=== PATIENT | female | born 1995 | race Caucasian/White ===

== ENCOUNTER 2023-01-13 12:29 | Emergency (ER) | payer OTHER ==
[2023-01-13 13:00] VITALS: RESP 18
[2023-01-13] MEDS ORDERED: HYDROcodone/APAP 5-325MG 1 EACH TAB PO STA (13:16)
[2023-01-13] MEDS ORDERED: IBUPROFEN 600 MG TAB PO STA (13:16)
--- NOTE | 2023-01-13 13:34 | ED ---
Extremity Problem HPI - General Chief complaint: Extremity Injury, Lower Stated complaint: pain in left leg Time Seen by Provider: 01/13/23 12:40 Source: patient, RN notes reviewed Mode of arrival: ambulatory Limitations: no limitations - History of Present Illness Initial comments: This is a 27-year-old female who presents to the emergency department for left leg pain. Patient reports 3 days of pain starting the left foot and starting to travel up into the leg. This does not go up much farther than the distal most aspect of the tib-fib. However, she does still occasionally get spurts of pain up into the higher area of the calf and behind the knee. Denies any injuries. However, states that she was on a long car ride recently. Denies any chest pain or shortness of breath. She's not had any swelling to this area. Denies any history of similar symptoms in the past. She is able to ambulate but states that it becomes very difficult after more than a few minutes. She has not tried taking anything for her pain. She originally went to urgent care, who advised she come to the emergency department to rule out a blood clot. MD Complaint: extremity pain Onset/Timin -: days(s) Location: left, lower extremity - Related Data Previous Rx's Medication Instructions Recorded Ibuprofen [Motrin] 800 mg PO Q8H PRN #30 tab 01/13/23 Allergies Allergy/AdvReac Type Severity Reaction Status Date / Time No Known Allergies Allergy Verified 01/13/23 12:50 Review of Systems ROS Statement: Those systems with pertinent positive or pertinent negative responses have been documented in the HPI. ROS Other: All systems not noted in ROS Statement are negative. Past Medical History Past Medical History: No Reported History History of Any Multi-Drug Resistant Organisms: None Reported Past Surgical History: No Surgical Hx Reported Past Psychological History: Anxiety, Depression Smoking Status: Never smoker Past Alcohol Use History: Rare Past Drug Use History: Marijuana General Exam Limitations: no limitations General appearance: alert, in no apparent distress Head exam: Present: atraumatic, normocephalic, normal inspection Respiratory exam: Present: normal lung sounds bilaterally. Absent: respiratory distress, wheezes, rales, rhonchi, stridor Cardiovascular Exam: Present: regular rate, normal rhythm, normal heart sounds. Absent: systolic murmur, diastolic murmur, rubs, gallop, clicks Extremities exam: Present: other (Tenderness to palpation over the dorsal aspect of the left foot and bottom half of the left tib-fib. Range of motion is somewhat limited by pain. No obvious deformities, swelling, ecchymosis, or erythema. 2+ DP and PT pulses. Capillary refill less than 1 second.) Neurological exam: Present: alert, oriented X3, CN II-XII intact Psychiatric exam: Present: normal affect, normal mood Skin exam: Present: warm, dry, intact, normal color. Absent: rash Course Vital Signs 01/13/23 01/13/23 12:44 14:31 Temperature 98.6 F 98.4 F Pulse Rate 92 87 Respiratory 18 18 Rate Blood Pressure 135/88 129/76 O2 Sat by Pulse 97 98 Oximetry Medical Decision Making - Medical Decision Making This is a 27-year-old female who presents to the emergency department for left leg pain. Was pt. sent in by a medical professional or institution? @ -Urgent Care Did you speak to anyone other than the patient for history? @ -No Did you review nursing and triage notes? @ -Yes, and I agree, it is accurate with regards to the patient's symptoms. Were old charts reviewed? @ -No Differential Diagnosis? @ -Differential Leg Pain: Leg fracture, leg sprain, DVT, PVD, arterial insufficiency, iliac artery aneurysm, cellulitis, compartment syndrome, tendinopathy, nerve entrapment, piriformis syndrome, osteoarthritis, rhabdomyolysis, myositis, cramping from an electrolyte imbalance, this is not meant to be an all inclusive list. EKG interpreted by me (3pts min.)? @ -Not obtained X-rays interpreted by me (1pt min.)? @ -Not obtained CT interpreted by me (1pt min.)? @ -Not obtained U/S interpreted by me (1pt. min.)? @ -Duplex ultrasound of the left lower extremity obtained. My interpretation identifies no evidence of a DVT. What testing was considered but not performed? (CT, X-rays, U/S, labs)? Why? @ -None What meds were considered but not given? Why? @ -None Did you discuss the management of the patient with other professionals? @ -No Did you reconcile home meds? @ -No Was smoking cessation discussed for >3mins.? @ -No Was critical care preformed (if so, how long)? @ -No Were there social determinants of health that impacted care today? How? (Homelessness, low income, unemployed, alcoholism, drug addiction, transportation, low edu. Level, literacy, decrease access to med. care, senior care, rehab)? @ -No Was there de-escalation of care discussed even if they declined? (Discuss DNR or withdrawal of care, Hospice)? @ -No What co-morbidities impacted this encounter? (DM, HTN, Smoking, COPD, CAD, Cancer, CVA, Hep., AIDS, mental health diagnosis, sleep apnea, morbid obesity)? @ -None Was patient admitted / discharged? @ -Discharged. Physical examination of the left lower extremity revealed no external findings aside from the tenderness. Duplex ultrasound obtained revealing no acute process. I did offer x-rays, however given that there were no injuries, it is unlikely that this would demonstrate anything. Patient declines x-rays at this time. Her pain was controlled in the emergency depart ment. Prescription for ibuprofen provided with dosing instructions reviewed. Advised alternating this with Tylenol for additional relief. Information for local primary care providers was provided. Advised she contact them to become established for ongoing medical care. Undiagnosed new problem with uncertain prognosis? @ -None Drug Therapy requiring intensive monitoring for toxicity (Heparin, Nitro, Insulin, Cardizem)? @ -None Were any procedures done? @ -None Diagnosis/symptom? @ -Left leg pain Acute, or Chronic, or Acute on Chronic? @ -Acute Uncomplicated (without systemic symptoms) or Complicated (systemic symptoms)? @ -Uncomplicated Side effects of treatment? @ -None Exacerbation, Progression, or Severe Exacerbation] @ -Not applicable Poses a threat to life or bodily function? @ -No Return precautions reviewed in depth, the patient is instructed to return to the emergency department with any new, worsening, or concerning symptoms. Patient verbalized understanding. This case was discussed in detail with the attending ED physician, Dr. Bernabe. Presentation, findings, and treatment plan discussed in detail as well. - Radiology Data Radiology results: report reviewed, image reviewed Disposition Clinical Impression: Left leg pain Disposition: HOME SELF-CARE Instructions (If sedation given, give patient instructions): Leg Pain (ED) Additional Instructions: Return to the emergency department with any new, worsening, or concerning sym ptoms. Alternate with ibuprofen and Tylenol as needed for pain relief. Contact the list of local primary care providers listed below to become established for ongoing care. You can also try contacting the orthopedic office as listed below to see if they will see you for a follow-up appointment from the emergency department. Prescriptions: Ibuprofen [Motrin] 800 mg PO Q8H PRN #30 tab PRN Reason: Pain Is patient prescribed a controlled substance at d/c from ED?: No Referrals: None,Stated [Primary Care Provider] - 1-2 days Yariel Monson MD [STAFF PHYSICIAN] - 1-2 days Forms: Area PCPs
--- NOTE | 2023-01-13 13:57 | US ---
EXAMINATION TYPE: US venous doppler duplex LE LT DATE OF EXAM: 01/13/2023 1:47 PM COMPARISON: NONE CLINICAL INDICATION: Female, 27 years old with history of Left leg pain; Left calf pain SIDE PERFORMED: Left TECHNIQUE: The lower extremity deep venous system is examined utilizing real time linear array sonog sudhir with graded compression, doppler sonography and color-flow sonography. VESSELS IMAGED: Common Femoral Vein Deep Femoral Vein Greater Saphenous Vein * Femoral Vein Popliteal Vein Small Saphenous Vein * Proximal Calf Veins (* superficial vessels) Left Leg: Appears negative for DVT IMPRESSION: Grayscale, color doppler, spectral doppler imaging performed of the deep veins of the lo wer extremities. There is normal flow, compressibility, vascular waveforms.
[2023-01-13 14:53] VITALS: BP 129/76; PULSE 87; TEMP 98.4
== END 2023-01-13 14:33 | disposition home or self-care (01) ==
LOC: EC 12:29
DX: M79.605 Pain in left leg (principal); F12.90 Cannabis use, unspecified, uncomplicated; Z86.59 Personal history of other mental and behavioral disorders
CPT/HCPCS: 99283

== ENCOUNTER 2023-10-20 12:09 | Emergency (ER) | payer OTHER ==
[2023-10-20] MEDS ORDERED: MECLIZINE 12.5 MG TAB ONE (13:36)
[2023-10-20] MEDS ORDERED: SODIUM CHLORIDE 0.9% 500 ML BAG ONE (13:45)
== END 2023-10-20 16:21 | disposition home or self-care (01) ==
LOC: EC 12:09
DX: R42 Dizziness and giddiness (principal)
CPT/HCPCS: 93005; 96360; 99284